=== PATIENT | female | born 1990 | race Caucasian/White ===

== ENCOUNTER 2019-05-16 23:21 | Emergency (ER) | payer OTHER ==
[~2019-05-16] VITALS: Ht 160 cm; Wt 54.5 kg
[2019-05-17 00:10] LABS: BASO # 0.1 10^3/uL (0.0-0.2); BASO % 0.6 % (0.0-1.0); EOS # 0.1 10^3/uL (0.0-0.5); EOS % 0.8 % (0.0-3.0); HEMATOCRIT 36.5 % (36.0-47.0); HEMOGLOBIN 12.1 g/dl (12.0-15.5); LYMPH % 29.9 % (24.0-44.0); MEAN CORPUSCULAR HEMOGLOBIN 30.3 pg (27.0-33.0); MEAN CORPUSCULAR HGB CONC 33.2 g/dl (32.0-36.5); MEAN CORPUSCULAR VOLUME 91.3 fl (80.0-96.0); MONO # 0.8 10^3/uL (0.0-0.8); MONO % 8.3 % (0.0-5.0); NEUTROPHILS % 59.6 % (36.0-66.0); PLATELET COUNT, AUTOMATED 241 10^3/uL (150-450); WHITE BLOOD COUNT 10.1 10^3/uL (4.0-10.0)
[2019-05-17] MEDS ORDERED: ONDANSETRON 4 MG ORAL DISINTEGRATING TAB (Q0162 PER 1MG) PO ONE (01:00)
--- NOTE | 2019-05-17 01:53 | REPVR ---
PROCEDURE INFORMATION: Exam: US First Trimester, Transabdominal Exam date and time: 05/17/2019 1:18 AM Age: 29 years old Clinical indication: Lmp or gestational age (in weeks): Lmp/03/29; Antepartum complications; Bleeding; complicated by abdominal or pelvic pain; Lower; First trimester; ; Additional info: Vaginal bleeding/cramping TECHNIQUE: Imaging protocol: Real-time transabdominal obstetrical ultrasound of the maternal pelvis and a first trimester , less than 14 weeks 0 days, with image documentation. COMPARISON: No relevant prior studies available. FINDINGS: GESTATION: Gestation: Gestational sac within the uterus with pole and yolk sac. Heart rate: heartbeat of 155 bpm. Placenta: Small subchorionic hemorrhage measuring 14 x 16 x 5 mm. Amniotic fluid: Amniotic and coelomic fluid are normal for gestational age. BIOMETRY: [place]-Rump length: [place]-rump length of 15 mm suggesting an age of 7 weeks 6 days. MATERNAL: Uterus: Unremarkable. Right adnexa: The right ovary measures 3.0 x 3.3 x 1.8 cm and demonstrates normal arterial and venous blood flow. Left adnexa: The left ovary measures 3.4 x 3.7 x 3.2 cm and demonstrates a 16 x 16 x 11 mm cyst. There is left ovarian arterial venous blood flow. Intraperitoneal: No intraperitoneal free fluid. IMPRESSION: 1. Single live intrauterine gestation with an estimated age of 7 weeks 6 days. 2. Small subchorionic hemorrhage measuring 14 x 16 x 5 mm. Electronically signed by: Jude Vivar On 05/17/2019 01:52:42 AM
[2019-05-17 02:16] VITALS: BP 126/76
== END 2019-05-17 02:15 | disposition home or self-care (01) ==
LOC: M ED 23:21
DX: O20.8 Other hemorrhage in early pregnancy (principal); Z3A.01 Less than 8 weeks gestation of pregnancy; O99.331 Smoking (tobacco) complicating pregnancy, first trimester; Z88.0 Allergy status to penicillin
CPT/HCPCS: 76801; 80047; 81001; 84702; 85025; 86850; 86900; 86901; 93976; 99283; Q0162

== ENCOUNTER → 2019-05-18 | Outpatient (CLI) | payer OTHER | LOC: M LAB 12:12 | PROVIDERS: ATTEND Obstetrics & Gynecology | DX: O46.90 Antepartum hemorrhage, unspecified, unspecified trimester (principal) ==

== ENCOUNTER → 2019-06-08 | Outpatient (REF) | payer OTHER ==
[2019-06-08 17:56] LABS: HEMATOCRIT 35.5 % (36.0-47.0); MEAN CORPUSCULAR HEMOGLOBIN 31.3 pg (27.0-33.0); MEAN CORPUSCULAR HGB CONC 33.8 g/dl (32.0-36.5); MEAN CORPUSCULAR VOLUME 92.7 fl (80.0-96.0); PLATELET COUNT, AUTOMATED 220 10^3/uL (150-450); RED BLOOD COUNT 3.83 10^6/uL (4.00-5.40); WHITE BLOOD COUNT 8.5 10^3/uL (4.0-10.0)
[2019-06-09 11:45] LABS: HIV 1&2 SCREEN CENTAUR NEGATIVE (NEGATIVE); RUBELLA IgG QUALITATIVE IMMUNE (IMMUNE)
== END ==
LOC: M LAB REF 17:05
PROVIDERS: ATTEND Obstetrics & Gynecology
DX: O36.80X0 Pregnancy with inconclusive fetal viability, not applicable or unspecified (principal)

== ENCOUNTER → 2019-06-18 | Outpatient (CLI) | payer MEDICAID, OTHER ==
--- NOTE | 2019-06-18 15:56 | REP ---
OB ULTRASOUND: Real-time sonographic evaluation of the gravid uterus is performed. There is a single living intrauterine gestation. The estimated gestational age is 12 weeks 6 days based on a crown-rump length of 65 mm. EDC 12/25/2019. heart rate 157 beats per minute. There is no subchorionic hemorrhage. Hypoechoic area in the left ovary measures about 2 cm in maximum diameter and probably represents a hemorrhagic corpus luteum. There is blood flow in the left ovary. Electronically Signed by Sherwin Velez MD 06/21/2019 12:55 P
== END ==
LOC: M RAD 13:37
PROVIDERS: ATTEND Obstetrics & Gynecology
DX: Z34.92 Encounter for supervision of normal pregnancy, unspecified, second trimester (principal); Z3A.12 12 weeks gestation of pregnancy

== ENCOUNTER → 2019-08-05 | Outpatient (CLI) | payer OTHER ==
--- NOTE | 2019-08-05 19:35 | REP ---
Clinical: Anatomical evaluation. Comparison: 06/18/2019 . Findings: Examination demonstrates a single live intrauterine in cephalic presentation. motion is identified by technologist. Placenta is noted anterior and grade I without evidence for placenta previa or abruption. Amniotic fluid volume is normal. Cervix measures 3.3 cm in length and appears closed. No evidence for nuchal cord. Gestational age by LMP 19 weeks 1 day with ELIOT 12/29/2019 . Gestational age by current measurements 19 weeks 1 day with ELIOT 12/29/2019 . FHR equals 140 beats per minute. Estimated weight 296 grams ( 58th percentile). Anatomical assessment demonstrates normal structures including cranium, choroid plexus, cavum, cerebellum/posterior fossa, facial features, lungs, four-chamber heart/ventricular outflow tracts, diaphragm, stomach, cord insertion/three-vessel cord, kidneys/bladder, spine, and extremities. Impression: Single live intrauterine in cephalic presentation demonstrating appropriate interval growth. Anatomical assessment is complete and normal. No gross abnormalities are identified.
== END ==
LOC: M PLAIMG 12:56
PROVIDERS: ATTEND Obstetrics & Gynecology
DX: Z34.82 Encounter for supervision of other normal pregnancy, second trimester (principal); Z36.89 Encounter for other specified antenatal screening; Z3A.19 19 weeks gestation of pregnancy

== ENCOUNTER → 2019-10-06 | Outpatient (CLI) | payer OTHER ==
[2019-11-18 15:01] LABS: HEMATOCRIT 32.4 % (36.0-47.0); HEMOGLOBIN 10.2 g/dl (12.0-15.5); MEAN CORPUSCULAR HEMOGLOBIN 30.7 pg (27.0-33.0); MEAN CORPUSCULAR HGB CONC 31.5 g/dl (32.0-36.5); MEAN CORPUSCULAR VOLUME 97.6 fl (80.0-96.0); PLATELET COUNT, AUTOMATED 207 10^3/uL (150-450); RED BLOOD COUNT 3.32 10^6/uL (4.00-5.40); WHITE BLOOD COUNT 8.1 10^3/uL (4.0-10.0)
== END ==
LOC: M LAB 11:40
PROVIDERS: ATTEND Obstetrics & Gynecology
DX: Z34.82 Encounter for supervision of other normal pregnancy, second trimester (principal); Z3A.00 Weeks of gestation of pregnancy not specified

== ENCOUNTER → 2019-12-09 | Outpatient (REF) | payer OTHER | LOC: M LAB REF 12:21 | PROVIDERS: ATTEND Advanced Practice Midwife | DX: Z34.83 Encounter for supervision of other normal pregnancy, third trimester (principal); Z3A.00 Weeks of gestation of pregnancy not specified ==

== ENCOUNTER 2021-02-10 19:56 | Emergency (ER) | payer OTHER ==
[~2021-02-10] VITALS: Ht 162.6 cm; Wt 51.7 kg
--- OUTSIDE RECORDS SUMMARY | 2021-02-10 20:02 | CCD ---
Author Author [facility] Organization [facility] Address Unknown Phone Unavailable Care Team Providers Care Senior Net Architect Name Role Phone NO, PCP Unavailable Unavailable Joby, Saudsimiisabel Medina AGRICULTURAL SALES REPRESENTATIVE-C Unavailable Unavailabl e Joby, Romulo Jose Enrique Medina AGRICULTURAL SALES REPRESENTATIVE-C Unavailable Unavailabl e [facility], [facility] AGRICULTURAL SALES REPRESENTATIVE-C Unavailable Unavailabl e Joby, [facility] Jose Enrique Medina AGRICULTURAL SALES REPRESENTATIVE-C Unavailable Unavailabl e Joby, [facility] Quispe Carol AGRICULTURAL SALES REPRESENTATIVE-C Unavailable Unavailabl e Joby, [facility] Jose Enrique Medina AGRICULTURAL SALES REPRESENTATIVE-C Unavailable Unavailabl e Joby, Romulo Jose Enrique Medina AGRICULTURAL SALES REPRESENTATIVE-C Unavailable Unavailabl e Joby, [facility] Jose Enrique Meidna AGRICULTURAL SALES REPRESENTATIVE-C Unavailable Unavailabl e Joby, [facility] Jose Enrique Medina AGRICULTURAL SALES REPRESENTATIVE-C Unavailable Unavailabl e Joby, [facility] Jose Enrique Medina AGRICULTURAL SALES REPRESENTATIVE-C Unavailable Unavailabl e Joby, [facility] Jose Enrique Medina AGRICULTURAL SALES REPRESENTATIVE-C Unavailable Unavailabl e Joby, [facility] Jose Enrique Medina AGRICULTURAL SALES REPRESENTATIVE-C Unavailable Unavailabl e Joby, [facility] Jose Enrique Medina AGRICULTURAL SALES REPRESENTATIVE-C Unavailable Unavailabl e Joby, Edytaisabel Medina AGRICULTURAL SALES REPRESENTATIVE-C Unavailable Unavailabl e Joby, [facility] Jose Enrique Medina AGRICULTURAL SALES REPRESENTATIVE-C Unavailable Unavailabl e Joby, [facility] Jose Enrique Medina AGRICULTURAL SALES REPRESENTATIVE-C Unavailable Unavailabl e Joby, [facility] Jose Enrique Medina AGRICULTURAL SALES REPRESENTATIVE-C Unavailable Unavailabl e Joby, [facility] W Carol AGRICULTURAL SALES REPRESENTATIVE-C Unavailable Unavailabl e Joby, Romulo Medina AGRICULTURAL SALES REPRESENTATIVE-C Unavailable Unavailabl e Joby, Romulo Medina AGRICULTURAL SALES REPRESENTATIVE-C Unavailable Unavailabl e Joby, Romulo Cervantese AGRICULTURAL SALES REPRESENTATIVE-C Unavailable Unavailabl e Joby, Romulo Medina AGRICULTURAL SALES REPRESENTATIVE-C Unavailable Unavailabl e Joby, Romulo Medina AGRICULTURAL SALES REPRESENTATIVE-C Unavailable Unavailabl e Joby, Romulo Cervantese AGRICULTURAL SALES REPRESENTATIVE-C Unavailable Unavailabl e Joby, Romulo Martinyce AGRICULTURAL SALES REPRESENTATIVE-C Unavailable Unavailabl e Joby, Romulo Cervantese AGRICULTURAL SALES REPRESENTATIVE-C Unavailable Unavailabl e Joby, Romulo Medina AGRICULTURAL SALES REPRESENTATIVE-C Unavailable Unavailabl e Joby, Romulo Medina AGRICULTURAL SALES REPRESENTATIVE-C Unavailable Unavailabl e Joby, Romulo Medina AGRICULTURAL SALES REPRESENTATIVE-C Unavailable Unavailabl e Joby, Romulo Medina AGRICULTURAL SALES REPRESENTATIVE-C Unavailable Unavailabl e Joby, Romulo Medina AGRICULTURAL SALES REPRESENTATIVE-C Unavailable Unavailabl e Joby, Romulo Cervantese AGRICULTURAL SALES REPRESENTATIVE-C Unavailable Unavailabl e NIMCOAHVERONICA MD Unavailable Unavailable ABDULLAH ISMALISBETH MILLER MD Unavailable Unavailable ABDULLGERRY ISMALISBETH MILLER MD Unavailable Unavailable AMINAH ISMALISBETH MILLER MD Unavailable Unavailable AMINAH ISMALISBETH MILLER MD Unavailable Unavailable AMINAH ISMALISBETH MILLER MD Unavailable Unavailable ABDNIKHILAH ISMALISBETH MILLER MD Unavailable Unavailable ABDULLAH ISMALISBETH MILLER MD Unavailable Unavailable ABDULLAH, ISMAIL PAUL MONTALVO Unavailable Unavailable ABDNIKHILAH ISMAIL PAUL MONTALVO Unavailable Unavailable ABDULLAH, ISMAIL PAUL MONTALVO Unavailable Unavailable AMINAH ISMALISBETH MILLER MD Unavailable Unavailable Re-disclosure Warning The records that you are about to access may contain information from federally-assisted alcohol or drug abuse programs. If such information is present, then the following federally mandated warning applies: This information has been disclosed to you from records protected by federal confidentiality rules (42 CFR part 2). The federal rules prohibit you from making any further disclosure of this information unless further disclosure is expressly permitted by the written consent of the person to whom it pertains or as otherwise permitted by 42 CFR part 2. A general authorization for the release of medical or other information is NOT sufficient for this purpose. The Federal rules restrict any use of the information to criminally investigate or prosecute any alcohol or drug abuse patient.The records that you are about to access may contain highly sensitive health information, the redisclosure of which is protected by Article 27-F of the [facility] Public Health law. If you continue you may have access to information: Regarding HIV / AIDS; Provided by facilities licensed or operated by the [facility] Office of Mental Health; or Provided by the [facility] Office for People With Developmental Disabilities. If such information is present, then the following [facility] mandated warning applies: This information has been disclosed to you from confidential records which are protected by state law. State law prohibits you from making any further disclosure of this information without the specific written consent of the person to whom it pertains, or as otherwise permitted by law. Any unauthorized further disclosure in violation of state law may result in a fine or residential sentence or both. A general authorization for the release of medical or other information is NOT sufficient authorization for further disc losure. Allergies and Adverse Reactions Type Description Substance Reaction Status Data Source(s ) Propensity to adverse reactions PENICILLIN PENICILLIN [facility] Hospital Encounters Encounter Providers Location Date Indications Data Source(s ) Outpatient Attender: Carol Hemphill AGRICULTURAL SALES REPRESENTATIVE-C 05/18/2020 01:24:0 0 PM [facility] Outpatient [facility] 05/18/2020 12:00:00 AM [facility] eCW1 ([facility]) Inpatient Attender: PAUL BURR MDConsultant: PCP NO 12/27/2019 06:25:00 AM EDT - 12/30/2019 10:15:00 AM EDT [facility] Hospita l Patient discharged. Medications No Information Insurance Providers Payer name Policy type / Coverage type Policy ID Covered democrat ID Covered democrat's relationship to anderson Policy Anderson Plan Information [employer] [id number] S [id number] [employer] [id number] S [id number] [employer] [id number] S [id number] [employer] [id number] S [id number] MEDICAID [id number] SP [id number] [employer] MEDICAID [facility] [id number] S [id number] JES[employer] [id number] SP [id number] [employer] MEDICAID [facility] [id number] S [id number] [employer] [id number] S [id number] [facility] [place] XIX MAN -I/P [id number] 18 [id number] [place] [facility] [place] [id number] Problems, Conditions, and Diagnoses Code Display Name Description Problem Type Effective Dates Data Source(s) L21.0 Seborrhea capitis SEBORRHEA CAPITIS Diagnosis 05/18/2020 01:24:00 PM [facility] [id number] Labor and delivery complicat ed by cord around neck, without compression, not applicable or unspecified Labor and delivery complicated by cord a round neck, without compression, not applicable or unspecified Diagnosis [facility] Single live Diagnosis 12/27/2019 06:25:00 AM [facility] O700 First degree perineal laceration during delivery First degree perineal laceration during delivery Diagnosis 12/27/2019 06:25:00 AM [facility] [id number] 39 weeks gestation of 39 weeks gestation of Diagnosis 12/27/2019 06:25:00 AM [facility] [id number] Streptococcus B carrier state complicati ng childbirth Streptococcus B carrier state complicating childbirth Diagnosis 12/27/2019 06:25:00 AM [facility] [id number] Streptococcus B carrier state complicati ng Streptococcus B carrier state complicating Diagnosis 12/27/2019 06:25:00 AM [facility] Surgeries/Procedures Procedure Description Date Indications Data Source(s) Repair Perineum Skin, External Approach Repair Perineum Skin , External Approach 12/28/2019 12:00:00 AM [facility] Delivery of Products of Conception, External Approach Delivery of Products of Conception, External Approach 12/28/2019 12:00:00 AM T [facility] Introduction of Anesthetic Agent into Spinal Canal, Pe rcutaneous Approach Introduction of Anesthetic Agent into Spinal Canal, Percutaneous Approac 12/27/2019 12:00:00 AM [facility] Drainage of Amniotic Fluid, Therapeutic from Products of Conception, Via Natural or Artificial Opening Drainage of Amniotic Fluid, Therapeutic from Products of Conception, Via Natural or Artificial Opening 12/27/2019 12:00:00 AM [facility] Introduction of Other Anti-infective int o Peripheral Vein, Percutaneous Approach Introduction of Other Anti-infective int o Peripheral Vein, Percutaneous Approach 12/27/2019 12:00:00 AM [facility] Monitoring of Products of Conception, Ca rdiac Electrical Activity, External Approach Monitoring of Products of Conception, Ca rdiac Electrical Activity, External Approach 12/27/2019 12:00:00 AM [facility] Results ID Date Data Source [id number] 12/28/2019 02:45:00 PM [facility] Name Value Range Interpretation Code Description Data Khadijah rce(s) Supporting Document(s) CBC W/AUTOMATED DIFF [facility] COMPLETE BLOOD COUNT Leukocytes [#/volume] in Blood by Automated count 12.8 10^3/uL 4.2 - 11.0 H [facility] Erythrocytes [#/volume] in Blood by Automated count 3.26 10^6/uL 4. 20 - 5.40 L [facility] Hemoglobin [Mass/volume] in Blood 9.2 g/dL 12.0 - 16.0 L [facility] Hematocrit [Volume Fraction] of Blood by Automated count 28.7 % 3 7.0 - 47.0 L [facility] Erythrocyte mean corpuscular volume [Entitic volume] by Auto mated count 88.0 fL 81.0 - 101 [facility] Erythrocyte mean corpuscular hemoglobin [Entitic mass] by Automated count 28.2 pg 27.0 - 34.0 [facility] Erythrocyte mean corpuscular hemoglobin concentration [Mass/volume] by Automated count 32.1 g/dL 31.0 - 36.0 [facility] Erythrocyte distribution width [Ratio] by Automated count 15.3 % 11.5 - 14.5 H [facility] Platelets [#/volume] in Blood by Automated count 177 10^3/uL 150 - 45 0 [facility] Platelet mean volume [Entitic volume] in Blood by Automated count 11.5 fL 7.4 - 10.4 H [facility] Neutrophils/100 leukocytes in Blood by Automated count 74.3 % 37. 0 - 80.0 [facility] Lymphocytes/100 leukocytes in Blood by Manual count 16.4 % 25.0 - 40.0 L [facility] Monocytes/100 leukocytes in Blood by Automated count 8.1 % 3.0 - 8.0 H [facility] Eosinophils/100 leukocytes in Blood by Automated count 0.3 % 0.0 - 7.0 [facility] Basophils/100 leukocytes in Blood by Automated count 0.2 % 0.0 - 2.5 [facility] %IG 0.7 % 0.0 - 0.0 H [facility] al %NRBC 0.0 % 0.0 - 0.0 [facility] al Neutrophils [#/volume] in Blood by Automated count 9.50 10^3/uL 2.00 - 6.90 H [facility] Lymphocytes [#/volume] in Blood by Automated count 2.10 10^3/uL 0.60 - 3.40 [facility] Monocytes [#/volume] in Blood by Automated count 1.04 10^3/uL 0.00 - 0.90 H [facility] Eosinophils [#/volume] in Blood by Automated count 0.04 10^3/uL 0.00 - 0.70 [facility] Basophils [#/volume] in Blood by Automated count 0.03 10^3/uL 0.00 - 0.20 [facility] #IG 0.09 10^3/uL 0.00 - 0.10 [facility] H ospital #NRBC 0.00 10^3/uL 0.00 - 0.00 [facility] ospital MANUAL DIFF SEE BELOW [facility] ital Segmented neutrophils/100 leukocytes in Blood by Manual count 78 % 37 - 80 [facility] %LYMPH 14 % 25 - 40 L [facility]osp [facility] %MONO 8 % 3 - 8 [facility] RBC MORPH SEE BELOW [facility] { SICKLE CELL (NORMAL: NONE SEEN ) Platelet adequacy [Presence] in Blood by Light microscopy NORMAL NORMAL: NORMAL [facility] COMMENT: [id number] 12/28/[id number].CLD. ID Date Data Source [id number] 12/27/2019 11:57:00 AM EDT [facility] Name Value Range Interpretation Code Description Data Khadijah rce(s) Supporting Document(s) ABO group [Type] in Blood A [facility] Rh [Type] in Blood POSITIVE [facility] AB SCREEN NEGATIVE NORMAL: NEGATIVE [facility] { ABO/RH REENTER A POSITIVE{ AB SCREEN RE-ENTER NEGATIVE ID Date Data Source [id number] 12/27/2019 11:05:00 AM EDT [facility] Name Value Range Interpretation Code Description Data Khadijah rce(s) Supporting Document(s) BNP 59 PG/ML 0 - 125 [facility] Hospit al ID Date Data Source [id number] 12/27/2019 11:05:00 AM EDT [facility] Name Value Range Interpretation Code Description Data Khadijah rce(s) Supporting Document(s) Creatine kinase [Enzymatic activity/volume] in Serum or Plasma 6 2 U/L 30 - 170 [facility] ID Date Data Source [id number] 12/27/2019 11:03:00 AM EDT [facility] Name Value Range Interpretation Code Description Data Khadijah rce(s) Supporting Document(s) BASIC METABOLIC PANEL [facility] BASIC METABOLIC PANEL Sodium [Moles/volume] in Serum or Plasma 134 mEq/L 134 - 153 [facility] Potassium [Moles/volume] in Serum or Plasma 4.1 mEq/L 3.6 - 5.0 [facility] Chloride [Moles/volume] in Serum or Plasma 101 mEq/L 98 - 107 [facility] Carbon dioxide, total [Moles/volume] in Serum or Plasma 21 MEQ/L 22 - 30 L [facility] Glucose [Mass/volume] in Serum or Plasma 72 MG/DL 65 - 110 [facility] BUN 8 MG/DL 7 - 21 [facility] al Creatinine [Mass/volume] in Serum or Plasma 0.6 MG/DL 0.7 - 1.5 L [facility] BUN/CREAT 13 8 - 27 [facility] Calcium [Mass/volume] in Serum or Plasma 9.1 MG/DL 8.4 - 10.2 [facility] Anion gap 3 in Serum or Plasma 12.0 mmol/L 8.0 - 16.0 [facility] AGE 29 yrs [facility] al AFR AMER GFR 151 mL/min [facility] Ho spital NON-AA GFR 125 mL/min [facility] ital Male GFR Inter prentation 20-49 yrs >60 mL/min Normal 50-59 yrs >56 mL/min Normal 60-69 yrs >49 mL/min Normal 70-79yrs >42 mL/min Normal 80 and above >35 mL/min Normal Female GFR Interpretation 20-39 yrs >60 mL/min Normal 40-49 yrs >58 mL/min Normal 50-59 yrs >51 mL/min Normal 60-69 yrs >45 mL/min Normal 70-79 yrs >39 mL/min Normal 80 and above >32 mL/min Normal ID Date Data Source [id number] 12/27/2019 10:53:00 AM EDT [facility] Name Value Range Interpretation Code Description Data Khadijah rce(s) Supporting Document(s) Prothrombin time (PT) 13.1 SECONDS 11.0 - 15.5 [facility] INR in Platelet poor plasma by Coagulation assay 0.98 0.93 - 1. 23 [facility] aPTT in Blood by Coagulation assay 26.9 SECONDS 24.8 - 36.7 [facility] \BLDo\INR INTERPRETATION\BLDx\ Therapeutic range for Coumadin and related oral anticoagulants. - International Normalized Ratio (INR): 2.0 - 3.0 for Venous Thrombosis, Pulmonary Embolus, Tissue heart valves, Acute VA Atrial Fibrillation, Valvular heart disease and recurrent Systemic Embolism. - International Normalized Ratio (INR): 2.5 - 3.5 for Mechanical Prosthetic valve. ID Date Data Source [id number] 12/27/2019 10:49:00 AM EDT [facility] Name Value Range Interpretation Code Description Data Khadijah rce(s) Supporting Document(s) CBC W/AUTOMATED DIFF [facility] COMPLETE BLOOD COUNT Leukocytes [#/volume] in Blood by Automated count 10.1 10^3/uL 4.2 - 11.0 [facility] Erythrocytes [#/volume] in Blood by Automated count 3.71 10^6/uL 4. 20 - 5.40 L [facility] Hemoglobin [Mass/volume] in Blood 10.1 g/dL 12.0 - 16.0 L [facility] Hematocrit [Volume Fraction] of Blood by Automated count 32.8 % 3 7.0 - 47.0 L [facility] Erythrocyte mean corpuscular volume [Entitic volume] by Auto mated count 88.4 fL 81.0 - 101 [facility] Erythrocyte mean corpuscular hemoglobin [Entitic mass] by Automated count 27.2 pg 27.0 - 34.0 [facility] Erythrocyte mean corpuscular hemoglobin concentration [Mass/volume] by Automated count 30.8 g/dL 31.0 - 36.0 L [facility] Erythrocyte distribution width [Ratio] by Automated count 15.1 % 11.5 - 14.5 H [facility] Platelets [#/volume] in Blood by Automated count 198 10^3/uL 150 - 45 0 [facility] Platelet mean volume [Entitic volume] in Blood by Automated count 12.1 fL 7.4 - 10.4 H [facility] Neutrophils/100 leukocytes in Blood by Automated count 70.1 % 37. 0 - 80.0 [facility] Lymphocytes/100 leukocytes in Blood by Manual count 19.2 % 25.0 - 40.0 L [facility] Monocytes/100 leukocytes in Blood by Automated count 8.9 % 3.0 - 8.0 H [facility] Eosinophils/100 leukocytes in Blood by Automated count 0.6 % 0.0 - 7.0 [facility] Basophils/100 leukocytes in Blood by Automated count 0.4 % 0.0 - 2.5 [facility] %IG 0.8 % 0.0 - 0.0 H [facility] %NRBC 0.0 % 0.0 [facility] [#/volume] in Blood by Automated count 7.08 10^3/uL 2.00 - 6.90 H [facility] Lymphocytes [#/volume] in Blood by Automated count 1.94 10^3/uL 0.60 - 3.40 [facility] Monocytes [#/volume] in Blood by Automated count 0.90 10^3/uL 0.00 - 0.90 [facility] Eosinophils [#/volume] in Blood by Automated count 0.06 10^3/uL 0.00 - 0.70 [facility] Basophils [#/volume] in Blood by Automated count 0.04 10^3/uL 0.00 - 0.20 [facility] #IG 0.08 10^3/uL 0.00 - 0.10 [facility] H ospital #NRBC 0.00 10^3/uL 0.00 - 0.00 [facility] MANUAL DIFF NOT INDICATED [facility] RBC MORPH NOT INDICATED [facility] spital ID Date Data Source [id number] 12/29/2019 06:15:00 AM EDT [facility] Name Value Range Interpretation Code Description Data Khadijah rce(s) Supporting Document(s) CULTURE URINE [facility] Ho spital _CULTURE URINE_$$[id number]$$[id number]$$[id number]$$[id number]$$[id number]$$[id number]$$[id number]$$274382$$[id number]$$ [id number]$$046758$$388336$$177190$$194003$$[id number]$$[id number]$$146399$$511179$$137483$$ 585311$$024319$$703816$$[id number]$$[id number]$$[id number]$$[id number]$$[id number] -- Continued on next page --Patient: JAMAL AREVALO Order: [id number] Page 2Culture: CULTURE URINE Status: Final ====$$[id number]$$[id number] DATE/TIME: 12/29/2019 05:06Culture: CULTURE URINE Status: FinalIsolate 1 Beta hemolytic Streptococcus, group B Flag: A . . . . . . .410,000-25,000 colony forming units per mLPenicillin and ampicillin are drugs of choice for treatment ofbeta-hemolytic streptococcal infections. Susceptibility testing ofpenicillins and other beta-lactam agents approved by the FDA fortreatment of beta-hemolytic streptococcal infections need not beperformed routinely because nonsusceptible isolates are extremelyrare in any beta-hemolytic streptococcus and have not been reportedfor Streptococcus pyogenes (group A). (CLSI)Urine Culture,Comprehensive: P1Beta hemolytic Streptococcus, group B Flag: AP1 Test performed by: [facility] Hospital[facility] BURTON #: [id number] [address] [place] [address] [id number] [facility] [id number] Director : Andrea Villalobos MD NPI #:Padder : [id number] REF ID Date Data Source [id number] 12/27/2019 10:50:00 AM EDT [facility] Name Value Range Interpretation Code Description Data Khadijah rce(s) Supporting Document(s) URINALYSIS [facility] maria teresa URINALYSIS SOURCE R [facility] COLOR yellow NORMAL: Yellow [facility] CLARITY clear NORMAL: Clear [facility] Specific gravity of Urine by Test strip 1.015 1.001 - 1.030 [facility] pH 7 5 - 9 [facility] Glucose [Mass/volume] in Urine by Test strip NORM NORMAL: Negat marni [facility] Bilirubin.total [Presence] in Urine by Test strip NEG NORMAL: Negative [facility] Ketones [Presence] in Urine by Test strip NEG NORMAL: Negative [facility] Protein [Mass/volume] in Urine by Test strip NEG NORMAL: Negat [facility] Nitrite [Presence] in Urine by Test strip NEG NORMAL: Negative [facility] BLOOD NEG NORMAL: Negative [facility] Leukocyte esterase [Presence] in Urine by Test strip 500 NAVI L: Negative A [facility] Urobilinogen [Mass/volume] in Urine by Test strip NOR less burak n 1.0 mg/dL [facility] MICROSCOPIC See Below [facility] ital WBC 7 - 10 NORMAL: NONE SEEN A [facility] Erythrocytes [#/volume] in Urine by Test strip 1 - 3 NORMAL: NON E SEEN [facility] EPITHELIAL MODERATE NORMAL: NONE SEEN A [facility] Bacteria [Presence] in Urine sediment by Light microscopy 2+ MOD NORMAL: NONE SEEN A [facility] Mucus [Presence] in Urine sediment by Light microscopy Trace NORMAL: NONE SEEN [facility] YEAST Few A [facility] Hospit [facility] Procedure Social History Code Duration Value Status Description Data Source(s ) Smoking 05/18/2020 12:00:00 AM EST Current Smoker completed Curre nt Smoker eCW1 ([facility]) Vital Signs ID Date Data Source UNK Name Value Range Interpretation Code Description Data Source(s) Body height 63 [in_i] 63 [in_i] eCW1 ([facility]) Body temperature 97.4 [degF] 97.4 [degF] eCW1 ( [facility]) Heart rate 73 /min 73 /min eCW1 ([facility]) Respiratory rate 17 /min 17 /min eCW1 ([facility]) Oxygen saturation in Arterial blood by Pulse oximetry 99 % 99 % eCW1 ([facility]) ID Date Data Source [id number] 01/06/2020 09:44:18 AM EDT [facility] Name Value Range Interpretation Code Description Data Source(s) WEIGHT RECORDED 156.00 pounds 156.00 pounds [facility] Height 63 Inches 063 Inches [facility]
[2021-02-10] MEDS ORDERED: PERCOCET 5MG/325MG TAB PO ONE (21:35)
--- OUTSIDE RECORDS SUMMARY | 2021-02-10 22:02 | CCD ---
Author Author [facility] Organization [facility] Address Unknown Phone Unavailable Care Team Providers Care Java Web Application Developer Name Role Phone NO, PCP Unavailable Unavailable Joby, Romulo Jose Enrique Medina TAX COLLECTION COORDINATOR-C Unavailable Unavailabl e Joby, Romulo Quispe Carol TAX COLLECTION COORDINATOR-C Unavailable [facility]availabl e [facility] Carol TAX COLLECTION COORDINATOR-C Unavailable Unavailabl e [facility] Jose Enrique Carol TAX COLLECTION COORDINATOR-C Unavailable Unavailabl e [facility] Jose Enrique Carol TAX COLLECTION COORDINATOR-C Unavailable Unavailabl e [facility] Enrique Carol TAX COLLECTION COORDINATOR-C Unavailable Unavailabl e Joby, Romulo Jose Enrique Medina TAX COLLECTION COORDINATOR-C Unavailable Unavailabl e Joby, Edyta Jose Enrique Carol TAX COLLECTION COORDINATOR-C Unavailable Unavailabl e [facility] Enrique Medina TAX COLLECTION COORDINATOR-C Unavailable Unavailabl e Joby, Romulo Jose Enrique Medina TAX COLLECTION COORDINATOR-C Unavailable Unavailabl e [facility] Enrique Carol TAX COLLECTION COORDINATOR-C Unavailable Unavailabl e [facility] Enrique Carol TAX COLLECTION COORDINATOR-C Unavailable Unavailabl e [facility] Jose Enrique Medina TAX COLLECTION COORDINATOR-C Unavailable Unavailabl e [facility] Enrique Medina TAX COLLECTION COORDINATOR-C Unavailable Unavailabl e Joby, Edyta Jose Enrique Medina TAX COLLECTION COORDINATOR-C Unavailable Unavailabl e [facility] Enrique Medina TAX COLLECTION COORDINATOR-C Unavailable Unavailabl e Job[facility] Jose Enrique Medina TAX COLLECTION COORDINATOR-C Unavailable Unavailabl e Joby, Romulo Cervantese TAX COLLECTION COORDINATOR-C Unavailable Unavailabl e Joby, Romulo Cervantese TAX COLLECTION COORDINATOR-C Unavailable Unavailabl e Joby, Romulo Cervantese TAX COLLECTION COORDINATOR-C Unavailable Unavailabl e Joby, Romulo Martinyce TAX COLLECTION COORDINATOR-C Unavailable Unavailabl e Joby, Romulo Cervantese TAX COLLECTION COORDINATOR-C Unavailable Unavailabl e Joby, Romulo Cervantese TAX COLLECTION COORDINATOR-C Unavailable Unavailabl e Joby, Romulo Cervantese TAX COLLECTION COORDINATOR-C Unavailable Unavailabl e Joby, Romulo Cervantese TAX COLLECTION COORDINATOR-C Unavailable Unavailabl e Joby, Romulo Cervantese TAX COLLECTION COORDINATOR-C Unavailable Unavailabl e Joby, Romulo Medina TAX COLLECTION COORDINATOR-C Unavailable Unavailabl e Joby, oRmulo Cervantese TAX COLLECTION COORDINATOR-C Unavailable Unavailabl e Joby, Romulo Medina TAX COLLECTION COORDINATOR-C Unavailable Unavailabl e Joby, Romulo Cervantese TAX COLLECTION COORDINATOR-C Unavailable Unavailabl e Joby, Romulo Cervantese TAX COLLECTION COORDINATOR-C Unavailable Unavailabl e Joby, Romulo Martinyce TAX COLLECTION COORDINATOR-C Unavailable Unavailabl e VERONICA BURR MD Unavailable Unavailable AMINAH ISCORNEL MILLER MD Unavailable Unavailable ABDPANCHO ISCORNEL MILLER MD Unavailable Unavailable AMINAH ISCORNEL MILLER MD Unavailable Unavailable AMINAH ISCORNEL MILLER MD Unavailable Unavailable AMINAH ISCORNEL MILLER MD Unavailable Unavailable AMINAH ISMALISBETH MILLER MD Unavailable Unavailable AMINAH ISMALISBETH MILLER MD Unavailable Unavailable AMINAH ISMALISBETH MILLER MD Unavailable Unavailable ABDPANCHO ISMAIL PAUL MONTALVO Unavailable Unavailable AMINAH ISMALISBETH [...] is protected by Article 27-F of the [facility] Public Health law. If you continue you may have access to information: Regarding HIV / AIDS; Provided by facilities licensed or operated by the [facility] Office of Mental Health; or Provided by the [facility] Office for People With Developmental Disabilities. If such information is present, then the following [facility] mandated warning applies: This information has been [...] law may result in a fine or fdc sentence or both. A general authorization for the release of medical or other information is NOT sufficient authorization for further disc losure. Allergies and Adverse Reactions Type Description Substance Reaction Status Data Source(s ) Propensity to adverse reactions PENICILLIN PENICILLIN [facility] Encounters Encounter Providers Location Date Indications Data Source(s ) Outpatient Attender: Carol Hemphill TAX COLLECTION COORDINATOR-C 05/18/2020 01:24:0 0 PM [facility] Outpatient [facility] 05/18/2020 12:00:00 AM EST eCW1 ([facility]) Inpatient Attender: PAUL BURR MDConsultant: PCP NO 12/27/2019 06:25:00 AM EDT - 12/30/2019 10:15:00 AM EDT [facility] Patient discharged. Medications No Information Insurance Providers Payer name Policy type / Coverage type Policy ID Covered green party ID Covered green party's relationship to anderson Policy Anderson Plan Information [employer] [id number] S [id number] [employer] [id number] S [id number] [employer] [id number] S [id number] [employer] [id number] S [id number] MEDICAID [id number] SP [id number] [employer] MCD HMO [id number] S [id number] JESÚS [id number] SP [id number] [employer] MEDICAID [facility] [id number] S [id number] [employer] [id number] S [id number] [employer] [place] XIX MAN -[place]/P [id number] 18 [id number] [place] [place] [id number] 18 [id number] Problems, Conditions, and Diagnoses Code Display Name Description Problem Type Effective Dates Data Source(s) L21.0 Seborrhea capitis SEBORRHEA CAPITIS Diagnosis 05/18/2020 01:24:00 PM [facility] [id number] Labor and delivery complicat ed by cord around neck, without compression, not applicable or unspecified Labor and delivery complicated by cord a round neck, without compression, not applicable or unspecified Diagnosis 12/27/2019 06:25:00 AM [facility] Z370 Single live Single live Diagnosis 12/27/2019 06:25:00 AM [facility] O700 First degree perineal laceration during delivery First degree perineal laceration during delivery Diagnosis 12/27/2019 06:25:[address] [facility] [id number] 39 weeks gestation of 39 weeks gestation of Diagnosis 12/27/2019 06:25:00 AM [facility] [id number] Streptococcus B carrier state complicati ng childbirth Streptococcus B carrier state complicating childbirth Diagnosis 12/27/2019 06:25:00 AM [facility] [id number] Streptococcus B carrier state complicati ng Streptococcus B carrier state complicating Diagnosis 12/27/2019 06:25:00 AM [facility] Surgeries/Procedures Procedure Description Date Indications Data Source(s) Repair Perineum Skin, External Approach Repair Perineum Skin , External Approach 12/28/2019 12:00:00 AM [facility] Delivery of Products of Conception, External Approach Delivery of Products of Conception, External Approach 12/28/2019 12:00:00 AM [facility] Introduction of Anesthetic Agent into Spinal Canal, Pe rcutaneous Approach Introduction of Anesthetic Agent into Spinal Canal, Percutaneous Approac 12/27/2019 12:00:00 AM [facility] Drainage of Amniotic Fluid, Therapeutic from Products of Conception, Via Natural or Artificial Opening Drainage of Amniotic Fluid, Therapeutic from Products of Conception, Via Natural or Artificial Opening 12/27/2019 12:00:00 AM [facility] Introduction of Other Anti-infective int o Peripheral Vein, Percutaneous Approach Introduction of Other Anti-infective int o Peripheral Vein, Percutaneous Approach 12/27/2019 12:00:00 AM [facility] Monitoring of Products of Conception, Ca rdiac Electrical Activity, External Approach Monitoring of Products of Conception, Ca rdiac Electrical Activity, External Approach 12/27/2019 12:00:00 AM [facility] Results ID Date Data Source [id number] 12/28/2019 02:45:00 PM [facility] Name Value Range Interpretation Code Description Data Khadijah rce(s) Supporting Document(s) CBC W/AUTOMATED DIFF [facility] COMPLETE BLOOD COUNT Leukocytes [#/volume] in Blood by Automated count 12.8 10^3/uL 4.2 - 11.0 H [facility] Erythrocytes [#/volume] in Blood by Automated count 3.26 10^6/uL 4. 20 - 5.40 L [facility] Hemoglobin [Mass/volume] in Blood 9.2 g/dL 12.0 - 16.0 L [facility] Hematocrit [Volume Fraction] of Blood by Automated count 28.7 % 3 7.0 - 47.0 L [facility] Erythrocyte mean corpuscular volume [Entitic volume] by Auto mated count 88.0 fL 81.0 - 101 [facility] Erythrocyte mean corpuscular hemoglobin [Entitic mass] by Automated count 28.2 pg 27.0 - 34.0 [facility] Erythrocyte mean corpuscular hemoglobin concentration [Mass/volume] by Automated count 32.1 g/dL 31.0 - 36.0 [facility] Erythrocyte distribution width [Ratio] by Automated count 15.3 % 11.5 - 14.5 H [facility] Platelets [#/volume] in Blood by Automated count 177 10^3/uL 150 - 45 0 [facility] Platelet mean volume [Entitic volume] in Blood by Automated count 11.5 fL 7.4 - 10.4 H [facility] Neutrophils/100 leukocytes in Blood by Automated count 74.3 % 37. 0 - 80.0 [facility] Lymphocytes/100 leukocytes in Blood by Manual count 16.4 % 25.0 - 40.0 L [facility] Monocytes/100 leukocytes in Blood by Automated count 8.1 % 3.0 - 8.0 H [facility] Eosinophils/100 leukocytes in Blood by Automated count 0.3 % 0.0 - 7.0 [facility] Basophils/100 leukocytes in Blood by Automated count 0.2 % 0.0 - 2.5 [facility] %IG 0.7 % 0.0 - 0.0 H [facility] Hospit al %NRBC 0.0 % 0.0 - 0.0 [facility] Neutrophils [#/volume] in Blood by Automated count 9.50 10^3/uL 2.00 - 6.90 H [facility] Lymphocytes [#/volume] in Blood by Automated count 2.10 10^3/uL 0.60 - 3.40 [facility] Monocytes [#/volume] in Blood by Automated count 1.04 10^3/uL 0.00 - 0.90 H [facility] Eosinophils [#/volume] in Blood by Automated count 0.04 10^3/uL 0.00 - 0.70 [facility] Basophils [#/volume] in Blood by Automated count 0.03 10^3/uL 0.00 - 0.20 [facility] #IG 0.09 10^3/uL 0.00 - 0.10 [facility] H ospital #NRBC 0.00 10^3/uL 0.00 - 0.00 [facility] ospital MANUAL DIFF SEE BELOW [facility] ital Segmented neutrophils/100 leukocytes in Blood by Manual count 78 % 37 - 80 [facility] %LYMPH 14 % 25 - 40 L [facility] Hospit al %MONO 8 % 3 - 8 [facility] al RBC MORPH SEE BELOW [facility] al { SICKLE CELL (NORMAL: NONE SEEN ) Platelet adequacy [Presence] in Blood by Light microscopy NORMAL NORMAL: NORMAL [facility] COMMENT: [id number]. ID Date Data Source [id number] 12/27/2019 11:57:00 AM EDT [facility] Name Value Range Interpretation Code Description Data Khadijah rce(s) Supporting Document(s) ABO group [Type] in Blood A [facility] Rh [Type] in Blood POSITIVE [facility] AB SCREEN NEGATIVE NORMAL: NEGATIVE [facility] { ABO/RH REENTER A POSITIVE{ AB SCREEN RE-ENTER NEGATIVE ID Date Data Source [id number] 12/27/2019 11:05:00 AM EDT [facility] Name Value Range Interpretation Code Description Data Khadijah rce(s) Supporting Document(s) BNP 59 PG/ML 0 - 125 [facility] Hospit al ID Date Data Source [id number] 12/27/2019 11:05:00 AM EDT [facility] Name Value Range Interpretation Code Description Data Khadijah rce(s) Supporting Document(s) Creatine kinase [Enzymatic activity/volume] in Serum or Plasma 6 2 U/L 30 - 170 [facility] ID Date Data Source [id number] 12/27/2019 11:03:00 AM EDT [facility] Name Value Range Interpretation Code Description Data Khadijah rce(s) Supporting Document(s) BASIC METABOLIC PANEL [facility] BASIC METABOLIC PANEL Sodium [Moles/volume] in Serum or Plasma 134 mEq/L 134 - 153 [facility] Potassium [Moles/volume] in Serum or Plasma 4.1 mEq/L 3.6 - 5.0 [facility] Chloride [Moles/volume] in Serum or Plasma 101 mEq/L 98 - 107 [facility] Carbon dioxide, total [Moles/volume] in Serum or Plasma 21 MEQ/L 22 - 30 L [facility] Glucose [Mass/volume] in Serum or Plasma 72 MG/DL 65 - 110 [facility] BUN 8 MG/DL 7 - 21 [facility] al Creatinine [Mass/volume] in Serum or Plasma 0.6 MG/DL 0.7 - 1.5 L [facility] BUN/CREAT 13 8 - 27 [facility] Calcium [Mass/volume] in Serum or Plasma 9.1 MG/DL 8.4 - 10.2 [facility] Anion gap 3 in Serum or Plasma 12.0 mmol/L 8.0 - 16.0 [facility] AGE 29 yrs [facility] AFR AMER GFR 151 mL/min [facility] Ho spital NON-AA GFR 125 mL/min [facility] ital Male GFR Inter prentation 20-49 [...] >32 mL/min Normal ID Date Data Source [id number] 12/27/2019 10:53:00 AM EDT [facility] Name Value Range Interpretation Code Description Data Khadijah rce(s) Supporting Document(s) Prothrombin time (PT) 13.1 SECONDS 11.0 - 15.5 [facility] INR in Platelet poor plasma by Coagulation assay 0.98 0.93 - 1. 23 [facility] aPTT in Blood by Coagulation assay 26.9 SECONDS 24.8 - 36.7 [facility] \BLDo\INR INTERPRETATION\BLDx\ Therapeutic range for Coumadin and related oral anticoagulants. - International Normalized Ratio (INR): 2.0 - 3.0 for Venous Thrombosis, Pulmonary Embolus, Tissue heart valves, Acute [place] Atrial Fibrillation, Valvular heart disease and recurrent Systemic Embolism. - International Normalized Ratio (INR): 2.5 - 3.5 for Mechanical Prosthetic valve. ID Date Data Source [id number] 12/27/2019 10:49:00 AM EDT [facility] Name Value Range Interpretation Code Description Data Khadijah rce(s) Supporting Document(s) CBC W/AUTOMATED DIFF [facility] COMPLETE BLOOD COUNT Leukocytes [#/volume] in Blood by Automated count 10.1 10^3/uL 4.2 - 11.0 [facility] Erythrocytes [#/volume] in Blood by Automated count 3.71 10^6/uL 4. 20 - 5.40 L [facility] Hemoglobin [Mass/volume] in Blood 10.1 g/dL 12.0 - 16.0 L [facility] Hematocrit [Volume Fraction] of Blood by Automated count 32.8 % 3 7.0 - 47.0 L [facility] Erythrocyte mean corpuscular volume [Entitic volume] by Auto mated count 88.4 fL 81.0 - 101 [facility] Erythrocyte mean corpuscular hemoglobin [Entitic mass] by Automated count 27.2 pg 27.0 - 34.0 [facility] Erythrocyte mean corpuscular hemoglobin concentration [Mass/volume] by Automated count 30.8 g/dL 31.0 - 36.0 L [facility] Erythrocyte distribution width [Ratio] by Automated count 15.1 % 11.5 - 14.5 H [facility] Platelets [#/volume] in Blood by Automated count 198 10^3/uL 150 - 45 0 [facility] Platelet mean volume [Entitic volume] in Blood by Automated count 12.1 fL 7.4 - 10.4 H [facility] Neutrophils/100 leukocytes in Blood by Automated count 70.1 % 37. 0 - 80.0 [facility] Lymphocytes/100 leukocytes in Blood by Manual count 19.2 % 25.0 - 40.0 L [facility] Monocytes/100 leukocytes in Blood by Automated count 8.9 % 3.0 - 8.0 H [facility] Eosinophils/100 leukocytes in Blood by Automated count 0.6 % 0.0 - 7.0 [facility] Basophils/100 leukocytes in Blood by Automated count 0.4 % 0.0 - 2.5 [facility] %IG 0.8 % 0.0 - 0.0 H [facility] %NRBC 0.0 % 0.0 - 0.0 [facility] Neutrophils [#/volume] in Blood by Automated count 7.08 10^3/uL 2.00 - 6.90 H [facility] Lymphocytes [#/volume] in Blood by Automated count 1.94 10^3/uL 0.60 - 3.40 [facility] Monocytes [#/volume] in Blood by Automated count 0.90 10^3/uL 0.00 - 0.90 [facility] Eosinophils [#/volume] in Blood by Automated count 0.06 10^3/uL 0.00 - 0.70 [facility] Basophils [#/volume] in Blood by Automated count 0.04 10^3/uL 0.00 - 0.20 [facility] #IG 0.08 10^3/uL 0.00 - 0.10 [facility] ospital #NRBC 0.00 10^3/uL 0.00 - 0.00 [facility] MANUAL DIFF NOT INDICATED [facility] RBC MORPH NOT INDICATED [facility] spital ID Date Data Source [id number] 12/29/2019 06:15:00 AM EDT [facility] Name Value Range Interpretation Code Description Data Khadijah rce(s) Supporting Document(s) CULTURE URINE [facility] spital _CULTURE URINE_$$[id number]$$[id number]$$[id number]$$[id number]$$[id number]$$[id number]$$[id number]$$[id number]$$[id number]$$ [id number]$$[id number]$$[id number]$$[id number]$$[id number]$$[id number]$$[id number]$$[id number]$$915645$$[id number]$$ 212091$$[id number]$$926350$$[id number]$$[id number]$$[id number]$$[id number]$$[id number] -- Continued on next page --Patient: JAMAL AREVALO Order: [id number] Page 2Culture: CULTURE URINE Status: Final ====$$[id number]$$[id number] DATE/TIME: 12/29/2019 05:06Culture: CULTURE URINE Status: FinalIsolate [...] group B Flag: AP1 [facility]NA #: [id number] [address] [place] [address] [id number] [facility] [id number] Director : Anrdea Villalobos MD NPI #:Practice Performance Manager : [email or web address] REF ID Date Data Source [id number] 12/27/2019 10:50:00 AM EDT [facility] Name Value Range Interpretation Code Description Data Khadijah rce(s) Supporting Document(s) URINALYSIS [facility] maria teresa URINALYSIS SOURCE R [facility] COLOR yellow NORMAL: Yellow [facility] CLARITY clear NORMAL: Clear [facility] Specific gravity of Urine by Test strip 1.015 1.001 - 1.030 [facility] pH 7 5 - 9 [facility] Glucose [Mass/volume] in Urine by Test strip NORM NORMAL: Negat [facility] Bilirubin.total [Presence] in Urine by Test strip NEG NORMAL: Negative [facility] Ketones [Presence] in Urine by Test strip NEG NORMAL: Negative [facility] Protein [Mass/volume] in Urine by Test strip NEG NORMAL: Negat [facility] Nitrite [Presence] in Urine by Test strip NEG NORMAL: Negative [facility] BLOOD NEG NORMAL: Negative [facility] Leukocyte esterase [Presence] in Urine by Test strip 500 NAVI L: Negative A [facility] Urobilinogen [Mass/volume] in Urine by Test strip NOR less burak n 1.0 mg/dL [facility] MICROSCOPIC See Below [facility] ital WBC 7 - 10 NORMAL: NONE SEEN A [facility] Erythrocytes [#/volume] in Urine by Test strip 1 - 3 NORMAL: NON E SEEN [facility] EPITHELIAL MODERATE NORMAL: NONE SEEN A [facility] Bacteria [Presence] in Urine sediment by Light microscopy 2+ MOD NORMAL: NONE SEEN A [facility] Mucus [Presence] in Urine sediment by Light microscopy Trace NORMAL: NONE SEEN [facility] YEAST Few A [facility] Hospit al Procedure Social History Code Duration Value Status Description Data Source(s ) Smoking 05/18/2020 12:00:00 AM EST Current Smoker completed Curre nt Smoker eCW1 ([facility]) Vital Signs ID Date Data Source UNK Name Value Range Interpretation Code Description Data Source(s) Body height 63 [in_i] 63 [in_i] eCW1 ([facility]) Body temperature 97.4 [degF] 97.4 [degF] eCW1 ( [facility]) Heart rate 73 /min 73 /min eCW1 ([facility]) Respiratory rate 17 /min 17 /min eCW1 ([facility]) Oxygen saturation in Arterial blood by Pulse oximetry 99 % 99 % eCW1 ([facility]) ID Date Data Source [id number] 01/06/2020 09:44:18 AM EDT [facility] Name Value Range Interpretation Code Description Data Source(s) WEIGHT RECORDED 156.00 pounds 156.00 pounds [facility] Height 63 Inches 063 Inches [facility]
--- NOTE | 2021-02-10 22:05 | REPVR ---
PROCEDURE INFORMATION: Exam: XR Right Wrist Exam date and time: 02/10/2021 8:39 PM Age: 30 years old Clinical indication: Other: Pain to right wrist; Additional info: [place]; Pain to right wristr TECHNIQUE: Imaging protocol: XR Right wrist. Views: 3 or more views. COMPARISON: No relevant prior studies available. FINDINGS: Bones/joints: Widening of the scapholunate interval may be related to age-indeterminate tear of the scapholunate ligament. Otherwise unremarkable. Soft tissues: Normal. IMPRESSION: 1. Widening of the scapholunate interval may be related to age-indeterminate tear of the scapholunate ligament. 2. Otherwise unremarkable. Electronically signed by: Felix Hall On 02/10/2021 22:04:20 PM
[2021-02-10 22:30] VITALS: BP 125/83
[2021-02-10] MEDS ORDERED: HYDR-3713 PO (22:31)
== END 2021-02-10 22:39 | disposition home or self-care (01) ==
LOC: M ED 19:56
DX: S52.501A Unspecified fracture of the lower end of right radius, initial encounter for closed fracture (principal); F17.200 Nicotine dependence, unspecified, uncomplicated; W01.0XXA Fall on same level from slipping, tripping and stumbling without subsequent striking against object, initial encounter; Y92.9 Unspecified place or not applicable; Y93.9 Activity, unspecified; Y99.9 Unspecified external cause status